=== PATIENT | female | born 1960 | race Hispanic/Latino ===

== ENCOUNTER 2017-09-03 09:36 | Outpatient (CLI) | payer OTHER ==
[2017-09-03 09:57] LABS: Blood Urea Nitrogen 20 mg/dL (7-17)
--- NOTE | 2017-09-03 12:27 | Cat Scan Report ---
FINAL REPORT EXAM: CT ANGIO CHEST HISTORY: ANEURYSM ABDOMINAL AORTIC TECHNIQUE: CT angiography of the chest was performed. IV contrast was administered. Coronal and sagittal reformatted images were obtained. PRIORS: None. FINDINGS: There is no thoracic aortic aneurysm seen. There is no aortic dissection seen. There is no significant mediastinal or hilar mass seen. There are no filling defects seen within the pulmonary arterial circulation to suggest pulmonary embolism. There are no pleural effusions seen. There is moderate to marked emphysema. There is no acute infiltrate. There is a nonspecific small nodular density in the right upper lobe with spiculated margins. It measures about 5 mm. There is no pneumothorax seen. IMPRESSION: There is no aortic dissection, thoracic aortic aneurysm or pulmonary embolus seen. Moderate to marked emphysema. 5 mm nodular density in the right apex. If stability cannot be established by comparison to old studies, recommend follow-up in 6 months then 18-24 months if no change.
--- NOTE | 2017-09-03 12:39 | Cat Scan Report ---
FINAL REPORT EXAM: CT ANGIO ABDOMEN PELVIS HISTORY: aaa I71.4 TECHNIQUE: CT angiography of the abdomen and pelvis performed. IV contrast was administered. No oral contrast was administered. Axial images and coronal and sagittal reformatted images were obtained. PRIORS: None. FINDINGS: There emphysema in visualized lung bases. There is gallbladder distension. Specifically, the gallbladder measures 11.7 x 5.2 x 5.4 cm. I cannot confirm any cholelithiasis. The visualized liver, spleen, pancreas, adrenal glands and kidneys demonstrate no significant abnormalities. There are aortoiliac atherosclerotic calcifications. There is an infrarenal mid abdominal aortic aneurysm with prominent mural thrombus. This measures approximately 3.4 cm AP x 3.4 cm transverse. Celiac trunk/axis, SMA and renal arteries are patent. There is no evidence of intestinal obstruction. The appendix is normal. There is diverticulosis involving the left colon, but there is no evidence of acute diverticulitis. There are no abnormal fluid collections seen. There is no free intraperitoneal air. There is a large vascular enhancing mass in the bladder measuring 4.5 x 5.0 cm. This is highly concerning for malignancy. IMPRESSION: 3.4 cm infrarenal mid abdominal aortic aneurysm. The 5 cm vascular enhancing mass in the bladder which is very concerning for malignancy. Emphysema. Diverticulosis. No acute diverticulitis seen.
== END 2017-09-03 09:37 | disposition home or self-care (01) ==
LOC: CT 09:36 → EDSTATUS 09:45
PROVIDERS: ATTEND Internal Medicine Cardiovascular Disease
DX: I71.4 Abdominal aortic aneurysm, without rupture (principal); J43.9 Emphysema, unspecified; K57.30 Diverticulosis of large intestine without perforation or abscess without bleeding; K82.8 Other specified diseases of gallbladder; N32.89 Other specified disorders of bladder; I71.2 Thoracic aortic aneurysm, without rupture; I70.0 Atherosclerosis of aorta
CPT/HCPCS: 36415; 71275; 74174; 82565; 84520; Q9967

== ENCOUNTER 2018-07-26 10:27 | Outpatient (CLI) | payer OTHER ==
[2018-07-26 11:14] LABS: Blood Urea Nitrogen 11 mg/dL (7-17)
--- NOTE | 2018-07-27 04:26 | Cat Scan Report ---
PROCEDURE: CT ANGIO ABDOMEN PELVIS TECHNIQUE: Computerized axial tomographic angiography of the abdomen and pelvis was performed after the IV injection of iodinated nonionic contrast. The image data was postprocessed using 2-dimensional multiplanar reformatted (MPR) and 3-dimensional (MIP and/or volume rendered) techniques. CT DOSE LENGTH PRODUCT: 702 mGycm HISTORY: ABDOMINAL AORTIC ANEURYSM, WITHOUT RUPTURE COMPARISONS: None . FINDINGS: Abdominal aorta: There is an infrarenal abdominal aortic aneurysm measuring up to 3.4 cm. Slight per ipheral thrombus is identified. Moderate atherosclerosis along the periphery is seen. . Celiac artery: Normal . Superior mesenteric artery: Normal . Left renal artery: Normal . Right renal artery: Normal . Inferior mesenteric artery: Normal . Common iliacs: Normal . External iliacs: Normal . Internal iliacs: Normal . Hypervascular masses: None . Abdominal and pelvic viscera: The liver is fatty infiltrated. There is distention of the gallbladder lumen. . Other: None . IMPRESSION: There is a 3.4 cm infrarenal abdominal aortic aneurysm as described. Moderate atheroscle rosis of the arterial structures is noted. The liver is fatty infiltrated. . This document is electronically signed by Bridget Regalado DO., July 27 2018 04:24:50 AM ET
== END 2018-07-26 10:28 | disposition home or self-care (01) ==
LOC: CT 10:27
PROVIDERS: ATTEND Internal Medicine Cardiovascular Disease
DX: I71.4 Abdominal aortic aneurysm, without rupture (principal); I70.0 Atherosclerosis of aorta; K76.0 Fatty (change of) liver, not elsewhere classified
CPT/HCPCS: 36415; 74174; 82565; 84520; Q9967